=== PATIENT | female | born 2000 | race African-American/Black ===

== ENCOUNTER 2021-03-26 00:04 | Emergency (ER) | payer OTHER, SELFPAY ==
[2021-03-26 00:11] VITALS: BP 109/61; PULSE 92; RESP 20; TEMP 36.1; O2SAT 100
[2021-03-26 03:15] VITALS: BP 104/62; PULSE 95; RESP 18; TEMP 37.1; O2SAT 100
--- NOTE | 2021-03-26 06:11 | ED.GENADULT ---
HPI - General Adult General Chief complaint: Unspecified Stated complaint: Lower back pain, 9weeks preg, covid exposure Time Seen by Provider: 03/26/21 05:36 Source: patient and RN notes reviewed Mode of arrival: ambulatory Limitations: no limitations History of Present Illness HPI narrative: This is a 20 year old female approximately 9 wks GA who presents for evaluation of covid exposure. Patient is complaining of lower back pain that radiates to her legs. She reports mild lower abdominal cramping but she denies vaginal bleeding or spotting. She denies fever, vomiting, chest pain or diarrhea. sHe is complaining of headache, sore throat and mild cough. She states she had shortness of breath earlier but that has resolved. She has not taken any thing for pain. She lives her with boyfriend's sister, and she was diagnosed with COVID earlier this week. She is getting care with DR. Deon Craig and she has had an ultrasound showing an IUP. Related Data Home Medications Medication Instructions Recorded Confirmed No Home Medications 03/26/21 03/26/21 Allergies Allergy/AdvReac Type Severity Reaction Status Date / Time Penicillins Allergy Unknown Verified 03/26/21 00:13 Review of Systems Review of Systems: All systems reviewed & are unremarkable except as noted in HPI and below PMFSH Past Medical History Medical History (Updated 03/26/21 @ 06:37 by Elba Oconnor MD) Patient denies medical problems Surgical History Surgical History (Updated 03/26/21 @ 06:23 by Elba Oconnor MD) No pertinent past surgical history Social History Social History (Updated 03/26/21 @ 06:24 by Elba Oconnor MD) Smoking status: Never smoker Substance use type: marijuana Exam Narrative: Exam Narrative: GENERAL: Well-appearing, well-nourished, and in no acute distress. HEAD: Normocephalic, atraumatic EYES: PERRLA and EOMI, conjunctiva clear without discharge THROAT:Mucous membranes moist, Oropharynx normal without erythema, exudate, peritonsillar swelling or fluctuance NECK: Supple, without lymphadenopathy or mass RESPIRATORY: No respiratory distress, Airway patent, Respirations non-labored, Clear to auscultation without rales, rhonchi or wheeze HEART: Regular rate and rhythm. No murmur heard. Normal peripheral pulses. ABDOMEN: Soft, nontender, nondistended, normal active bowel sounds. No masses. No rebound or guarding, No organomegaly. EXTREMITIES: No edema, normal strength with full range of motion. SKIN: Warm, dry, normal color without rash NEURO: Alert and oriented x3. CN 2-12 grossly intact. No focal deficits. PSYCH: Normal mood and affect. Course Reevaluation(s) Reevaluation #1: I performed bedside US. She has IUP with heart rate 160. She has not vaginal bleeding and abdominal exam is benign. She has not cva tenderness. She may have covid. She has normal vitals and normal lung sounds so will discharge. Date: 03/26/21 Time: 06:35 Vital Signs Vital signs: Vital Signs Temperature 96.9 F L 03/26/21 00:11 Pulse Rate 92 03/26/21 00:11 Respiratory Rate 20 03/26/21 00:11 Blood Pressure 109/61 03/26/21 00:11 Pulse Oximetry 100 03/26/21 00:11 Temperature 98.8 F 03/26/21 03:15 Pulse Rate 95 03/26/21 03:15 Respiratory Rate 18 03/26/21 03:15 Blood Pressure 104/62 03/26/21 03:15 Pulse Oximetry 100 03/26/21 03:15 Medical Decision Making Vital Signs Vital Signs: Vital Signs Temperature 96.9 F L 03/26/21 00:11 Pulse Rate 92 03/26/21 00:11 Respiratory Rate 20 03/26/21 00:11 Blood Pressure 109/61 03/26/21 00:11 Pulse Oximetry 100 03/26/21 00:11 Temperature 98.8 F 03/26/21 03:15 Pulse Rate 95 03/26/21 03:15 Respiratory Rate 18 03/26/21 03:15 Blood Pressure 104/62 03/26/21 03:15 Pulse Oximetry 100 03/26/21 03:15 Lab Data Labs: Lab Results 03/26/21 03/26/21 Range/Units 06:10 06:15 U
[2021-03-26] MEDS: ACETAMINOPHEN 500 MG TABLET 1000 MG PO (06:19)
[2021-03-26 06:21] LABS: Add Urine Microscopic? YES; Appearance Urine Cloudy (Clear); Bilirubin Urine Negative (Negative); Blood Urine Negative (Negative); Color Urine Yellow (Yellow); Glucose Urine UA Negative (Negative); Ketones Urine Trace mg/dL (Negative); Leukocyte Esterase Ur Negative LEU/UL (Negative); Mucus Urine Rare /lpf; Nitrate Urine Negative (Negative); Protein Urine Negative (Negative); Specific Grav Ur 1.008 (1.001-1.035); Squamous Epithelial Cell Urine Many /hpf (Few); Urobilinogen Urine Negative mg/dL (<2.0)
[2021-03-26 16:43] LABS: SARS-CoV-2 RNA PCR Positive
== END 2021-03-26 07:07 | disposition home or self-care (01) ==
PROVIDERS: Emergency Provider General Practice
DX: O98.511 Other viral diseases complicating pregnancy, first trimester (principal); U07.1 COVID-19; J06.9 Acute upper respiratory infection, unspecified; Z3A.09 9 weeks gestation of pregnancy
CPT/HCPCS: 81001; 99283; A9270; C9803; U0003; U0005

== ENCOUNTER 2022-03-26 23:18 | Emergency (ER) | payer OTHER, SELFPAY ==
[2022-03-26 23:37] VITALS: BP 139/78; PULSE 108; RESP 16; TEMP 36.4; O2SAT 100
[2022-03-26 23:59] LABS: Eosinophils Absolute Auto 0.1 K/mm3 (0-0.3); Monocytes Absolute Auto 0.7 K/mm3 (0.1-0.6); Red Blood Count 4.03 M/mm3 (4.2-5.4); White Blood Count 9.8 K/mm3 (4.5-10.0)
--- NOTE | 2022-03-27 00:04 | ED.ABDPAIN ---
HPI - Abdominal Pain General Chief Complaint: Abdominal Pain Stated Complaint: lower abd/back pain Time Seen by Provider: 03/26/22 23:42 History of Present Illness HPI narrative: 21-year-old female presented to the emergency department for evaluation of vaginal discharge, lower abdominal cramping and back pain. Patient said the symptoms have been ongoing for the last week. Related Data Home Medications Medication Instructions Recorded Confirmed No Home Medications 03/26/21 03/26/21 Allergies Allergy/AdvReac Type Severity Reaction Status Date / Time Penicillins Allergy Unknown Verified 03/26/21 00:13 Review of Systems Review of Systems: CONSTITUTIONAL: Denies fever, chills, or sweats. EYES: Denies visual changes, redness, or discharge. ENT: Denies rhinorrhea, congestion, sore throat, or otalgia. CARDIOVASCULAR: Denies chest pain, palpitations, or edema. RESPIRATORY: Denies cough or dyspnea. GASTROINTESTINAL: See HPI GENITOURINARY: See HPI SKIN: Denies rash or itching. MUSCULOSKELETAL: Denies back pain, joint pain, or myalgia. NEUROLOGIC: Denies headache, numbness, or weakness. [facility], [facility] Past Medical History Medical History (Updated 03/27/22 @ 00:43 by Waldemar Pacheco MD) Patient denies medical problems Surgical History Surgical History (Updated 03/26/21 @ 06:23 by Elba Oconnor MD) No pertinent past surgical history Social History Social History (Updated 03/26/21 @ 06:24 by Elba Oconnor MD) Smoking status: Never smoker Substance use type: marijuana Exam Narrative: APPEARANCE: Well appearing, no pain, no distress, well-nourished. HEAD: normocephalic, atraumatic. EYES: PERRLA/EOMI, conjunctivae clear. NOSE: Normal no drainage NECK: Supple. No adenopathy, no masses. RESPIRATORY: Airway patent, respirations nonlabored. Clear to auscultation bilaterally, no rales, rhonchi, wheezing. CARDIOVASCULAR: Regular rate and rhythm without murmurs rubs or gallops. ABDOMINAL: Soft, mild suprapubic tenderness to palpation Pelvic exam: Minimal vaginal discharge. Nonfriable cervix. MUSCULOSKELETAL: Moves all extremities. Strength/ROM intact, No edema, No calf tenderness. NEURO: Alert. Cranial nerves II through XII intact. Grossly intact SKIN: Warm, dry. Normal Color Course Course Emergency Course: Pelvic exam showed no significant pelvic discharge. Patient is afebrile. Patient has no elevated leukocytosis. Patient's CMP is within normal limits. No elevated lactic acid. Urine shows no evidence of urinary tract infection. Patient was negative for trichomonas. Additional pelvic swabs are pending. Patient was encouraged to have close follow-up with her primary care physician. Vital Signs Vital signs: Vital Signs Temperature 97.6 F 03/26/22 23:37 Pulse Rate 108 H 03/26/22 23:37 Respiratory Rate 16 03/26/22 23:37 Blood Pressure 139/78 03/26/22 23:37 Pulse Oximetry 100 03/26/22 23:37 Oxygen Delivery Room Air 03/26/22 23:37 Temperature 97.6 F 03/26/22 23:37 Pulse Rate 82 03/27/22 01:05 Respiratory Rate 18 03/27/22 01:05 Blood Pressure 140/83 03/27/22 01:05 Pulse Oximetry 98 03/27/22 01:05 Oxygen Delivery Room Air 03/26/22 23:37 MDM - Abdominal Pain Lab Data Attestation: I reviewed the patient's lab results. Result diagrams: 03/26/22 23:50 03/26/22 23:50 Labs: Lab Results 03/26/22 03/26/22 03/26/22 Range/Units 23:50 23:50 23:50 WBC 9.8 (4.5-10.0) K/mm3 RBC 4.03 L (4.2-5.4) M/mm3 Hgb 11.9 L (12.0-15.0) g/dL Hct 36.1 L (37.0-47.0) % MCV 89.6 (80-100) fl MCH 29.5 (26-34) pg MCHC 33.0 (32-36) g/dl RDW 13.4 (11.5-14.5) % Plt Count 362 (150-375) k/mm3 MPV 10.2 (7.4-10.4) fl Immature Gran % (Auto) 0.3 (0-0.5) % Neut % (Auto) 71.9 (45.5-73.1) % Lymph % (Auto) 19.3 (18.3-44.2) % Reeves % (Auto) 7.2 (2.6-8.5) % Eos % (Auto) 1.1 (0-4.4)
[2022-03-27 00:17] LABS: Lactic Acid Reflex 1.3 mmol/L (0.7-2.0)
[2022-03-27 00:18] LABS: Alanine Aminotransferase 31 U/L (6-35); Albumin Level 4.4 g/dL (3.5-5.1); Alkaline Phosphatase 92 U/L (38-126); Anion Gap 11 mmol/L (8-16); Aspartate Amino Transferase 25 U/L (14-36); Bilirubin,Total 0.2 mg/dL (0.2-1.3); Blood Urea Nitrogen 9 mg/dL (7-17); Calcium 9.1 mg/dL (8.4-10.2); Carbon Dioxide 24 mmol/L (22-30); Chloride 105 mmol/L (98-107); Estimated CRCL calculation 105 ml/min; Estimated Glomerular Filt Rate > 60; Glucose 113 mg/dL (65-110); Potassium 3.9 mmol/L (3.4-5.0); Sodium 140 mmol/L (137-145)
[2022-03-27 00:21] LABS: Appearance Urine Clear (Clear); Bilirubin Urine Negative (Negative); Blood Urine Negative (Negative); Color Urine Yellow (Yellow); Glucose Urine UA Negative (Negative); Ketones Urine Trace mg/dL (Negative); Leukocyte Esterase Ur Negative LEU/UL (Negative); Nitrate Urine Negative (Negative); Protein Urine 1+ mg/dL (Negative); Specific Grav Ur 1.015 (1.001-1.035); pH Urine 8.5 (5.0-9.0)
[2022-03-27 00:27] LABS: Add Urine Microscopic? YES; Mucus Urine Rare /lpf; RBC Urine 0-2 /hpf (0-2); Squamous Epithelial Cell Urine Many /hpf (Few)
[2022-03-27 00:33] LABS: Basophils Percent Auto 0.2 % (0.2-1.2); Eosinophils Percent Auto 1.1 % (0-4.4); Hematocrit 36.1 % (37.0-47.0); Hemoglobin 11.9 g/dL (12.0-15.0); Immature Granulocyte Absolute 0.03 K/mm3 (0.00-0.031); Immature Granulocyte Percent A 0.3 % (0-0.5); Lymphocytes Absolute Auto 1.88 K/mm3 (0.9-3.2); Lymphocytes Percent Auto 19.3 % (18.3-44.2); Mean Corpuscular Hemoglobin 29.5 pg (26-34); Mean Corpuscular Volume 89.6 fl (80-100); Mean Platelet Volume 10.2 fl (7.4-10.4); Monocytes Percent Auto 7.2 % (2.6-8.5); Neutrophils Percent Auto 71.9 % (45.5-73.1); Platelet Count Result 362 k/mm3 (150-375); Red Cell Distribution Width 13.4 % (11.5-14.5)
[2022-03-27 00:35] LABS: Beta HCG Quantitative < 2.39 mIU/ML
[2022-03-27 01:05] VITALS: BP 140/83; PULSE 82; RESP 18; O2SAT 98
== END 2022-03-27 01:13 | disposition home or self-care (01) ==
PROVIDERS: Emergency Provider Emergency Medicine
DX: R10.32 Left lower quadrant pain (principal); R10.31 Right lower quadrant pain
CPT/HCPCS: 36415; 80053; 81001; 81025; 83605; 84702; 85025; 87070; 87491; 87591; 87808; 99284